=== PATIENT | female | born 1990 | race Two or more races ===

== ENCOUNTER → 2024-09-26 | Outpatient (CLI) | payer OTHER, SELFPAY ==
--- NOTE | 2024-09-26 10:45 | XR_ITS ---
Examination: Breast ultrasound complete, bilateral Date and time of exam: September 26, 2024 1058 hours INDICATIONS: Redness swelling and pain discharge open wound right breast the pain involving the breast beginning 6 months ago Technique: Real-time grayscale ultrasonographic imaging bilateral breasts, including all 4 quadrants as well as nipple retroareolar and axillary regions. Findings: Sonographic images right breast 4:00 nodule lobular margins 4 x 4 millimeter Sonographic images left breast 5:00 nodule circumscribed 3 x 3 mm 8:00 hypoechoic area with edema 3.9 x 1.3 x 3.7 cm IMPRESSION: BI-RADS Category 0: Incomplete: Need additional imaging evaluation Large area of edema in o'clock position left breast, differential would include inflammatory breast cancer as well as abscess, mastitis, recommend correlation with diagnostic mammography
--- NOTE | 2024-09-26 11:45 | XR_ITS ---
Examination: Diagnostic digital mammography, bilateral Computer aided detection 3-D breast Tomosynthesis, bilateral Date and time of exam: September 26, 2024 11:24 AM INDICATIONS: Patient states lump left breast note is beginning 6 months ago Technique: Nonmagnified MLO, CC views of the breasts to been obtained, reconstructed from 3-D Tomosynthesis images. R2 computer aided detection program utilized for evaluation of suspicious masses and/or abnormal calcifications. 3-D Tomosynthesis images obtained. Findings: The breasts are heterogeneously dense, which may obscure small masses 20 mm focal asymmetry upper outer left breast anterior depth The spot compression views do not include this area Impression: BI-RADS Category 0: Incomplete: Need additional imaging evaluation Recommend follow-up spot tomographic views upper outer quadrant left breast anterior depth to assess focal asymmetry described above.
== END | disposition home or self-care (01) ==
PROVIDERS: Referring Provider Surgery; Visit Provider Surgery
DX: N64.89 Other specified disorders of breast (principal); R92.8 Other abnormal and inconclusive findings on diagnostic imaging of breast
CPT/HCPCS: 76641; 77062; 77066; G0279

== ENCOUNTER → 2024-11-02 | Outpatient (CLI) | payer OTHER, SELFPAY ==
--- NOTE | 2024-11-02 09:45 | XR_ITS ---
Examination: Diagnostic digital mammography, unilateral, left Computer aided detection 3-D breast Tomosynthesis, unilateral Date and time of exam: November 02, 2024 0944 hours INDICATIONS: Mammogram September 26, 2024 20 mm focal asymmetry upper outer left breast anterior depth Technique: Nonmagnified MLO, CC views of the left breast have been obtained, reconstructed from 3-D Tomosynthesis images. R2 computer aided detection program utilized for evaluation of suspicious masses and/or abnormal calcifications. 3-D Tomosynthesis images obtained. Findings: The breast is heterogeneously dense, which may obscure small masses Focal asymmetry remains outer left breast on the spot compression CC view Please see the left breast sonogram September 26, 2024 indicating 11:00 hypoechoic area with edema 3.9 x 1.3 x 3.7 cm Impression: BI-RADS category 0: Incomplete: Need additional imaging evaluation Recommend repeat left breast sonography to assess the possible abscess in the left breast 8:00 position
== END | disposition home or self-care (01) ==
LOC: CDIM 09:21
PROVIDERS: PCP Family Medicine; Referring Provider Surgery; Visit Provider Surgery
DX: R92.8 Other abnormal and inconclusive findings on diagnostic imaging of breast (principal)
CPT/HCPCS: 77061; 77065; G0279

== ENCOUNTER → 2024-12-07 | Outpatient (CLI) | payer OTHER, SELFPAY ==
--- NOTE | 2024-12-07 10:45 | XR_ITS ---
Examination: Breast ultrasound, unilateral, left complete Date and time of exam: December 07, 2024, 1052 hours INDICATIONS: Left breast sonogram September 26, 2024 8:00 hypoechoic area 3.9 x 1.9 x 3.7 cm, edema versus mass Technique: Real-time altman scale ultrasonographic imaging performed left breast including all 4 quadrants as well as nipple retroareolar and axillary region. Findings: 8-9 o'clock focal area of edema poorly visualized Retroareolar circumscribed nodule index 3 x 4 mm Retroareolar circumscribed nodule 3 mm with index Axillary lymph nodes IMPRESSION: BI-RADS Category 0: Incomplete: Need additional imaging evaluation Recommend left breast ductogram to assess luminal densities within ducts in the left breast in the retroareolar region, also 3-month follow-up is needed for the areas of edema in the 8 to 9 o'clock position left breast
== END | disposition home or self-care (01) ==
LOC: CDIM 10:32
PROVIDERS: PCP Surgery; Referring Provider Surgery; Visit Provider Surgery
DX: R92.8 Other abnormal and inconclusive findings on diagnostic imaging of breast (principal); R60.0 Localized edema
CPT/HCPCS: 76641